=== PATIENT | male | born 1950 | race Caucasian/White ===

== ENCOUNTER 2019-03-12 18:44 | Inpatient (IN) ==
--- NOTE | 2019-03-12 19:52 | PROVIDER DOCUMENTATION ---
HPI-Respiratory General - General Chief Complaint: Shortness of Breath Stated Complaint: SOB, COPD Time Seen by Provider: 03/12/19 19:40 Source: patient, family Allergies/Adverse Reactions: Patient Allergies Allergy/AdvReac Type Severity Reaction Status Date / Time No Known Allergies Allergy Verified 03/12/19 21:08 Home Medications: Home Medication List Medication Instructions Recorded Confirmed Last Taken Type Aspirin EC 81 mg PO DAILY 07/05/14 03/12/19 03/12/19 History Carvedilol [Coreg] 12.5 mg PO BID 07/05/14 03/12/19 03/12/19 History Diazepam [Valium] 5 mg PO TID 07/05/14 03/12/19 03/12/19 History Fentanyl 75 Microgm/Hr Patch 1 each TD Q72H 07/05/14 03/12/19 03/10/19 History [Duragesic 75 Microgm/Hr Patch] Furosemide 20 mg PO BID 07/05/14 03/12/19 03/12/19 History Isosorbide Mononitrate E.r. [Imdur] 60 mg PO BID 07/05/14 03/12/19 03/12/19 History Levothyroxine Sodium 150 mcg PO DAILY 07/05/14 03/12/19 03/12/19 History Nateglinide [Starlix] 120 mg PO TID 07/05/14 03/12/19 03/12/19 History ROSUVAstatin [Crestor] 20 mg PO QHS 07/05/14 03/12/19 03/11/19 History Ranolazine [Ranexa] 1,000 mg PO BID 07/05/14 03/12/19 03/12/19 History Fexofenadine [Maya] 1 tab PO DAILY 10/08/15 03/12/19 03/12/19 History Mometasone Nasal [place] [Nasonex 2 sprays BOGDAN DAILY 10/08/15 03/12/19 03/12/19 History Nasal [place]] Prasugrel HCl [Effient] 10 mg PO DAILY 10/08/15 03/12/19 03/12/19 History Albuterol Sulfate [Proair Hfa] 2 puff INH Q6HR PRN 03/12/19 03/12/19 03/12/19 History Butorphanol Tartrate 1 spray INTRANASAL PRN PRN 03/12/19 03/12/19 Unknown History Nitroglycerin 1 spray SUBLINGUAL PRN PRN 03/12/19 03/12/19 Unknown History Olmesartan Medoxomil 2 tab PO DAILY 03/12/19 03/12/19 03/11/19 History Potassium Chloride 1 cap PO DAILY 03/12/19 03/12/19 03/12/19 History Testosterone [Androgel] 2 pump TOP QAM 03/12/19 03/12/19 03/12/19 History - History of Present Illness-Resp Nature of Presenting Problem: hx of copd and sleep apnea has had some cough may be a bit confused per got sick today no uri sx Quality of Pain: reports: aching Severity in ED: reports: mild Onset/Duration: reports: this afternoon Timing: reports: still present Context: denies: multiple patients with similar complaints, recent URI Exposure: reports: unknown cause Cough Quality/Degree: reports: dry cough Episode Frequency: occasional episodes Modifying Factors: improves with: coughing Associated Symptoms: reports: cough, short of breath. denies: nasal congestion, nasal drainage Similar Symptoms Previously?: Yes Recently seen or treated by another doctor?: No Review of Systems - Adult - REVIEW OF SYSTEMS - ADULT Constitutional: reports: no symptoms reported Eyes: reports: no symptoms reported Ears, Nose, Mouth & Throat: reports: no symptoms reported Cardiovascular: reports: no symptoms reported Respiratory: reports: cough, shortness of breath Gastrointestinal: reports: no symptoms reported Genitourinary: reports: no symptoms reported Musculoskeletal: reports: no symptoms reported Integumentary: reports: no symptoms reported Neurological: reports: no symptoms reported Psychiatric: reports: no symptoms reported Endocrine: reports: no symptoms reported Hematologic/Lymphatic: reports: no symptoms reported Allergic/Immunologic: reports: no symptoms reported Past History - Adult - PAST MEDICAL HISTORY-ADULT Review of Records: reports: Nursing Assessment Review, Medications Reviewed, Social history reviewed & non-contributory. Major Childhood Illnesses: reports: denies history Cardiovascular: reports: CAD, HTN, [place], pacemaker Respiratory: reports: sleep apnea Gastrointestinal: reports: GERD, hemorrhoids Musculoskeletal: reports: arthritis Endocrine/Immune: reports: Diabetes, thyroid disorder - PRIOR SURGERIES/PROCEDURES Surgical/Procedure History: reports: appendectomy, colonoscopy, CABG, cholecystectomy, cardiac stent, pacemaker, esophageal dilation, orthopedic (extremity) - IMMUNIZATION STATUS Childhood Immunizations: See Nurse Assessment Flu Vaccine: See Nurse Assessment Physical Exam-General - PHYSICAL EXAM-ADULT Initial Vital Signs Reviewed: Yes - CONSTITUTIONAL General Appearance: alert, no apparent distress - EYES Eyes: PERRL/EOMI, pink conjunctivae - HEAD, EARS, NOSE, MOUTH & THROAT HENMT: normocephalic/atraumatic, moist mucous membranes, normal ENT inspection, TMs normal, pharynx normal - NECK Neck: full range of motion, supple - RESPIRATORY Respiratory: lungs clear, no respiratory distress - CARDIOVASCULAR Cardiovascular: normal peripheral pulses, regular rate, rhythm - GASTROINTESTINAL (ABDOMEN) Abdominal Exam: soft - LYMPHATIC Lymphatic: no adenopathy - MUSCULOSKELETAL Back Exam: normal inspection, no CVA tenderness Extremity: normal range of motion, swelling Peripheral Pulses: dorsalis-pedis (R): 1+, dorsalis-pedis (L): 1+ - SKIN Integumentary: normal color, normal turgor - NEUROLOGIC Neurologic: community development technician II-XII nml as tested - PSYCHIATRIC Psych/Mental Status: oriented x 3 Progress - PLAN OF CARE/RESULTS Progress/Plan/Lab Results: Vital Signs - 8 hr 03/12/19 18:56 03/12/19 20:02 03/12/19 20:39 Temperature 99.1 F Pulse Rate 99 H 88 83 Respiratory Rate 24 22 20 Blood Pressure 125/68 104/73 117/65 O2 Sat by Pulse Oximetry 90 L 95 95 03/12/19 22:11 Temperature Pulse Rate 78 Respiratory Rate 17 Blood Pressure 124/56 O2 Sat by Pulse Oximetry 98 Laboratory Results - last 24 hr 03/12/19 03/12/19 03/12/19 19:45 19:45 20:19 WBC 12.51 H RBC 3.08 L Hgb 9.6 L Hct 30.9 L MCV 100.3 H MCH 31.2 H MCHC 31.1 L RDW Std Deviation 13.3 Plt Count 219 MPV 9.5 Immature Gran % (Auto) 0.2 Neut % (Auto) 87.8 H Lymph % (Auto) 6.2 L [place] % (Auto) 5.4 Eos % (Auto) 0.3 Baso % (Auto) 0.1 Immature Gran # (Auto) 0.02 Neut # (Auto) 11.00 H Lymph # (Auto) 0.77 L [place] # (Auto) 0.67 H Eos # (Auto) 0.04 Baso # (Auto) 0.01 Sodium 143 Potassium 5.2 H Chloride 103 Carbon Dioxide 30 Anion Gap 9 BUN 32 H Creatinine 2.0 H Estimated GFR/1.73 m2 33 BUN/Creatinine Ratio 16 Glucose 369 H Calculated Osmolality 307 Calcium 8.8 Total Bilirubin 0.50 AST 10 ALT 9 L Alkaline Phosphatase 57 Creatine Kinase 61 Total Protein 7.1 Albumin 4.0 Globulin 3.0 Albumin/Globulin Ratio 1.0 Plasma Lactate Urine Source Urine Color Urine Clarity Urine pH Ur Specific [place] Urine Protein Urine Ketones Urine Blood Urine Nitrite Urine Bilirubin Urine Urobilinogen Urine Microscopic RBC Urine WBC Urine Microscopic WBC Ur Epithelial Cells Urine Crystals Urine Bacteria Urine Casts Urine Yeast Urine Glucose Influenza A (Rapid) NEGATIVE Influenza B (Rapid) NEGATIVE 03/12/19 03/12/19 20:31 20:46 WBC RBC Hgb Hct MCV MCH MCHC RDW Std Deviation Plt Count MPV Immature Gran % (Auto) Neut % (Auto) Lymph % (Auto) [place] % (Auto) Eos % (Auto) Baso % (Auto) Immature Gran # (Auto) Neut # (Auto) Lymph # (Auto) [place] # (Auto) Eos # (Auto) Baso # (Auto) Sodium Potassium Chloride Carbon Dioxide Anion Gap BUN Creatinine Estimated GFR/1.73 m2 BUN/Creatinine Ratio Glucose Calculated Osmolality Calcium Total Bilirubin AST ALT Alkaline Phosphatase Creatine Kinase Total Protein Albumin Globulin Albumin/Globulin Ratio Plasma Lactate 1.3 Urine Source CLEAN CATCH Urine Color YELLOW Urine Clarity CLEAR Urine pH 5.0 Ur Specific [place] 1.010 Urine Protein TRACE A Urine Ketones NEGATIVE Urine Blood NEGATIVE Urine Nitrite NEGATIVE Urine Bilirubin NEGATIVE Urine Urobilinogen NORMAL Urine Microscopic RBC Not Reportable Urine WBC NEGATIVE Urine Microscopic WBC <10 Ur Epithelial Cells <10 Urine Crystals NONE SEEN Urine Bacteria 1+ Urine Casts GRANULAR PRESENT Urine Yeast NONE SEEN Urine Glucose 3+(500 mg/dL) A Influenza A (Rapid) Influenza B (Rapid) Orders Category Date Time Status CHEST-2 VIEWS [RAD] Stat Exams 03/12/19 19:[address] THORAX W/O CONTRAST [CT] Stat Exams 03/12/19 22:37 Taken BLOOD CULTURE [BLDCUL] Stat Lab 03/12/19 20:31 Results CBC WITH ELECTRONIC DIFF [HEME] Stat Lab 03/12/19 19:45 Completed CK PROFILE [SP CHEM] Stat Lab 03/12/19 19:45 Completed COMPREHENSIVE METABOLIC PANEL [CHEM] Stat Lab 03/12/19 19:45 Completed Flu [INFLUENZA SCREEN PL] Stat Lab 03/12/19 20:19 Completed LACTATE, PLASMA [CHEM] Stat Lab 03/12/19 20:[address] W/POSS RFLX CULT [URINALYSIS] Stat Lab 03/12/19 20:46 Completed 0.9% Sodium Chloride Inj [Ns] 1,000 ml Med 03/12/19 23:43 Active IV 100 mls/hr EKG [EKG] Routine Ther 03/12/19 19:46 Draft Transfer/Admit Order [TRANSFER] Routine Transfer 03/12/19 23:39 Ordered Result Diagrams: 03/12/19 19:45 03/12/19 19:45 - XRAY 1 XRAY Study: Chest Impression: Normal - CT/MRI 1 CT Study: Thorax Impression: Abnormal (possible pneumonia) Departure - Departure Date of Disposition Decision: 03/12/19 Time of Disposition Decision: 23:47 DIAGNOSIS: COPD (chronic obstructive pulmonary disease) with chronic bronchitis Diabetes Qualifiers: Diabetes mellitus type: type 2 Diabetes mellitus fci insulin use: without fci use Diabetes mellitus complication status: with hyperglycemia Qualified Code(s): E11.65 - Type 2 diabetes mellitus with hyperglycemia Pneumonia Qualifiers: Pneumonia type: due to unspecified organism Laterality: bilateral Lung location: unspecified part of lung Qualified Code(s): J18.9 - Pneumonia, unsp ecified organism Disposition: ADMITTED INPATIENT 09 Certified Medical Emergency: Emergent Condition: Stable Additional Freetext Instructions: ED Follow Up Instructions: You have been treated by a care provider in the Emergency Department. These instructions are being provided to you so you can have an understanding of how to care for yourself upon discharge. Upon discharge from the Emergency Department, you are responsible for making arrangements for follow-up care by a physician of your choice. Take all prescribed medications as directed. Return to the Emergency Department immediately for any new or worsening symptoms. You may call the Physician Referral phone number at [phone] to obtain a list of Physicians who are taking new patients. Referrals and Follow-Ups: Amol Ballesteros MD [Primary Care Provider] - Work Excuses: Return to School/Parent Work - Critical Care Note This patient required my direct & personal management of CC.: No Attestation - Physician/ YOLA Attestation Patient care was provided by Advanced Practice Provider:: No The physician spent face to face time with patient:: Yes Advanced Practice Provider documentation review:: Supervising physician onsite and consulted in the evaluation and care of this patient. The physician did have a face to face encounter with the patient.
[2019-03-12 20:00] LABS: BASO# 0.01 X1000 (0.0-0.2); BASO% 0.1 % (0.0-0.8); EOS# 0.04 X1000 (0.0-0.7); EOS% 0.3 % (0.0-10.0); HEMATOCRIT 30.9 % (42.0-52.0); HEMOGLOBIN 9.6 g/dL (14.0-18.0); IMM GRAN# 0.02 X1000 (0.0-0.04); IMM GRAN% 0.2 % (0.0-0.5); LYMPH# 0.77 X1000 (1.2-3.4); LYMPH% 6.2 % (20.5-51.1); MCH 31.2 PG (27-31); MCHC 31.1 g/dL (33-37); MCV 100.3 FL (81-99); MONO# 0.67 X1000 (0.11-0.59); MONO% 5.4 % (1.7-9.3); MPV 9.5 FL (7.4-10.4); NEUT% 87.8 % (42.2-75.2); PLT 219 X1000 (130-400); RBC 3.08 XMIL (4.7-6.1); RDW 13.3 % (11.5-14.5); WBC 12.51 X1000 (4.8-10.8)
[2019-03-12 20:19] LABS: CALCIUM 8.8 mg/dL (8.8-10.2); POTASSIUM 5.2 mmol/L (3.5-5.1); TOTAL BILIRUBIN 0.5 mg/dL (0.20-1.00); TOTAL PROTEIN 7.1 g/dL (6.3-8.3)
--- NOTE | 2019-03-12 20:39 | Diag Imaging Result Doc PS360 ---
EXAM: CHEST-2 VIEWS HISTORY: cough TECHNIQUE: Chest two views COMPARISON: 10/25/2015 FINDINGS: Poor inspiratory effort. The heart is not enlarged. There are sternal wires. Left pacemaker. The vessels are not distended. There are no infiltrates. No pleural effusions. IMPRESSION: No pneumonia. Electronically signed by Yan Eaton 03/12/2019 8:37 PM
[2019-03-12 20:41] LABS: INFLUENZA A NEGATIVE (NEGATIVE); INFLUENZA B NEGATIVE (NEGATIVE)
[2019-03-12 20:56] LABS: BILIRUBIN URINE NEGATIVE (NEGATIVE); BLOOD URINE NEGATIVE (NEGATIVE); KETONE URINE NEGATIVE (NEGATIVE); LEUKOCYTES URINE NEGATIVE (NEGATIVE); NITRITE URINE NEGATIVE (NEGATIVE); PROTEIN URINE TRACE mg/dL (NEGATIVE); UROBILINOGEN URINE NORMAL
[2019-03-12 20:57] LABS: CLARITY CLEAR (CLEAR); COLOR YELLOW
[2019-03-12 21:08] LABS: URINE BACTERIA 1+ /HFP; URINE CAST GRANULAR PRESENT /LPF; URINE CRYSTAL NONE SEEN /HPF; URINE EPITHELIAL CELLS <10 /HPF (<10); URINE WBC <10 /HPF (<10); URINE YEAST NONE SEEN /HPF
[2019-03-12 21:09] LABS: URINE SOURCE CLEAN CATCH
--- NOTE | 2019-03-12 21:52 | EKG Report ---
Test Performed on : 03/12/2019 8:16:21 PM Test Reason : emboli Blood Pressure : / mmHG Vent. Rate : 083 BPM Atrial Rate : 083 BPM P-R Int : 188 ms QRS Dur : 094 ms QT Int : 384 ms P-R-T Axes : 013 050 066 degrees QTc Int : 451 ms Sinus rhythm. with premature atrial complexes. with aberrant conduction. Otherwise normal ECG When compared with ECG of 07-OCT-2015 21:51, aberrant conduction. is now present Nonspecific T wave abnormality no longer evident in Inferior leads Unconfirmed Result
[2019-03-12] MEDS ORDERED: NS 1,000 ML IV ONE (23:43)
--- NOTE | 2019-03-12 23:45 | ED EKG INTERP ---
This chart was entered by Ailin Buchanan Scribe, acting as scribe for Amol Ballesteros MD. EKG Interpretation - EKG Time of EKG reading by physician:: 20:16 EKG Read and Signed by:: Amol Ballesteros EKG Interpretation (*Must complete 3 of following elements*): Normal Rate: 83 Rhythm: sinus rhythm with PAC with aberrant complexes [place]: normal QRS: other (PACs) NH Interval: normal ST Wave: normal Attestation - Physician/ YOLA Attestation Patient care was provided by Advanced Practice Provider:: No The physician spent face to face time with patient:: Yes Advanced Practice Provider documentation review:: Supervising physician onsite and consulted in the evaluation and care of this patient. The physician did have a face to face encounter with the patient. This chart was documented by the indicated scribe, (Ailin Buchanan, Kelsey) and accurately reflects the services I performed and decisions made by me, Amol Ballesteros MD, as attested by the provider's signature.
[2019-03-13] MEDS ORDERED: TYLENOL PO PRN (00:50)
[2019-03-13] MEDS ORDERED: LEVAQUIN 500 MG in NS 100 ML IV ONE (00:50)
[2019-03-13] MEDS: LEVAQUIN 500 MG/D5W 500 MG/100 ML IVPB IV SCH (01:58)
[2019-03-13] MEDS: DUONEB (A & A) INH SCH ×6 (04:20→22:55)
--- NOTE | 2019-03-13 07:34 | Diag Imaging Result Doc PS360 ---
EXAM: CT THORAX W/O CONTRAST - 03/12/2019 HISTORY: cough TECHNIQUE: CT thorax without contrast. COMPARISON: 10/07/2015 FINDINGS: There is chronic elevation of the right hemidiaphragm with associated mild compressive atelectasis at the right base. There is mild infiltrate with nodularity at the right middle lobe. There is mild infiltrate nodularity at the left lingula. There is subsegmental atelectasis at the left lower lobe. There is a small nodular density at anterior lateral right upper lobe similar to prior. There is no pleural effusion or pneumothorax identified. There are nonspecific small mediastinal lymph nodes which are mildly less prominent compared to prior. There are atherosclerotic calcifications noted. There is apparent chronic thickening of the daniels of the esophagus similar to prior. There is retained fecal debris in the visualized colon in the upper abdomen suggesting constipation. IMPRESSION: Mild infiltrates with nodularity at right middle lobe and left lingula. These may relate to pneumonia or atypical pneumonitis. The on-call radiologist provided preliminary results at 11:22 PM on 03/12/2019. This exam was performed using automated exposure control, adjustment of mA or kV according to patient size, and/or use of iterative reconstruction technique. Electronically signed by Adam Anaya 03/13/2019 7:32 AM
[2019-03-13] MEDS ORDERED: VENTOLIN HFA INH PRN (09:29)
[2019-03-13] MEDS ORDERED: PATIENT'S OWN MED NAS PRN (09:29)
[2019-03-13] MEDS ORDERED: DURAGESIC 75 MICROGM/HR PATCH TD SCH (09:30)
[2019-03-13] MEDS: RANEXA PO SCH ×2 (09:54→21:27)
[2019-03-13] MEDS: STARLIX PO SCH ×3 (09:54→16:57)
[2019-03-13] MEDS: COREG PO SCH ×2 (09:55→21:28)
[2019-03-13] MEDS: LASIX PO SCH ×2 (09:55→21:30)
[2019-03-13] MEDS: FLONASE NAS SCH (09:55)
[2019-03-13] MEDS: IMDUR PO SCH ×2 (09:55→21:31)
[2019-03-13] MEDS: KLOR-CON PO SCH (09:55)
[2019-03-13] MEDS: ASPIRIN EC PO SCH (09:55)
[2019-03-13] MEDS: ALLEGRA PO SCH (09:55)
[2019-03-13] MEDS: EFFIENT PO SCH (09:55)
[2019-03-13] MEDS: BENICAR PO SCH (10:03)
[2019-03-13] MEDS: PATIENT'S OWN MED TOP SCH (10:10)
[2019-03-13] MEDS: VALIUM PO SCH ×2 (12:00→16:57)
[2019-03-13 14:16] LABS: ALBUMIN 3.4 g/dL (3.5-5.0); CALCIUM 8.3 mg/dL (8.8-10.2); CREATININE 1.9 mg/dL (0.7-1.2); POTASSIUM 4.7 mmol/L (3.5-5.1); TOTAL BILIRUBIN 0.7 mg/dL (0.20-1.00); TOTAL PROTEIN 6.5 g/dL (6.3-8.3)
[2019-03-13 14:43] LABS: HEMATOCRIT 28.5 % (42.0-52.0); HEMOGLOBIN 8.9 g/dL (14.0-18.0); MCHC 31.2 g/dL (33-37); MCV 102.5 FL (81-99); RBC 2.78 XMIL (4.7-6.1); WBC 13.87 X1000 (4.8-10.8)
[2019-03-13 14:44] LABS: BASO# 0.02 X1000 (0.0-0.2); BASO% 0.1 % (0.0-0.8); EOS# 0.27 X1000 (0.0-0.7); EOS% 1.9 % (0.0-10.0); IMM GRAN# 0.04 X1000 (0.0-0.04); IMM GRAN% 0.3 % (0.0-0.5); LYMPH# 1.84 X1000 (1.2-3.4); LYMPH% 13.3 % (20.5-51.1); MONO# 0.65 X1000 (0.11-0.59); MONO% 4.7 % (1.7-9.3); MPV 9.8 FL (7.4-10.4); NEUT# 11.05 X1000 (1.4-6.5); NEUT% 79.7 % (42.2-75.2); PLT 183 X1000 (130-400); RDW 13.3 % (11.5-14.5)
[2019-03-13 21:25] LABS: BILIRUBIN URINE NEGATIVE (NEGATIVE); BLOOD URINE NEGATIVE (NEGATIVE); CLARITY CLEAR (CLEAR); COLOR YELLOW; GLUCOSE URINE NEGATIVE (NEGATIVE); KETONE URINE NEGATIVE (NEGATIVE); LEUKOCYTES URINE NEGATIVE (NEGATIVE); NITRITE URINE NEGATIVE (NEGATIVE); PROTEIN URINE TRACE mg/dL (NEGATIVE); SP GRAVITY URINE 1.015; UROBILINOGEN URINE NORMAL
[2019-03-13] MEDS: CRESTOR PO SCH (21:30)
[2019-03-13 21:32] LABS: URINE BACTERIA NEGATIVE /HFP; URINE CAST GRANULAR PRESENT /LPF; URINE EPITHELIAL CELLS <10 /HPF (<10); URINE RBC <10 /HPF (<10); URINE SOURCE CLEAN CATCH; URINE WBC <10 /HPF (<10)
[2019-03-14] MEDS: DUONEB (A & A) INH SCH ×6 (03:05→23:57)
[2019-03-14] MEDS: SYNTHROID PO SCH ×2 (06:05→06:06)
[2019-03-14] MEDS: STARLIX PO SCH ×3 (08:49→17:14)
[2019-03-14] MEDS: ALLEGRA PO SCH (08:50)
[2019-03-14] MEDS: KLOR-CON PO SCH (08:51)
[2019-03-14] MEDS: VALIUM PO SCH ×3 (08:51→17:14)
[2019-03-14] MEDS: RANEXA PO SCH ×2 (08:51→21:29)
[2019-03-14] MEDS: COREG PO SCH ×2 (08:52→21:29)
[2019-03-14] MEDS: EFFIENT PO SCH (08:54)
[2019-03-14] MEDS: LASIX PO SCH ×2 (08:55→21:29)
[2019-03-14] MEDS: ASPIRIN EC PO SCH (08:55)
[2019-03-14] MEDS: IMDUR PO SCH ×2 (08:55→21:29)
[2019-03-14] MEDS: PATIENT'S OWN MED TOP SCH (08:56)
[2019-03-14] MEDS: FLONASE NAS SCH (08:56)
[2019-03-14] MEDS: CRESTOR PO SCH (21:29)
[2019-03-14] MEDS: BENICAR PO SCH (21:32)
[2019-03-15] MEDS: LEVAQUIN 500 MG/D5W 500 MG/100 ML IVPB IV SCH (01:23)
[2019-03-15] MEDS: DUONEB (A & A) INH SCH ×3 (03:41→11:23)
[2019-03-15] MEDS: SYNTHROID PO SCH ×2 (06:17→06:18)
[2019-03-15] MEDS: ALLEGRA PO SCH (08:07)
[2019-03-15] MEDS: COREG PO SCH (08:07)
[2019-03-15] MEDS: LASIX PO SCH (08:08)
[2019-03-15] MEDS: RANEXA PO SCH (08:08)
[2019-03-15] MEDS: BENICAR PO SCH ×2 (08:08→08:16)
[2019-03-15] MEDS: EFFIENT PO SCH (08:08)
[2019-03-15] MEDS: VALIUM PO SCH ×2 (08:08→12:13)
[2019-03-15] MEDS: KLOR-CON PO SCH (08:09)
[2019-03-15] MEDS: FLONASE NAS SCH (08:09)
[2019-03-15] MEDS: IMDUR PO SCH (08:09)
[2019-03-15] MEDS: ASPIRIN EC PO SCH (08:09)
[2019-03-15] MEDS: STARLIX PO SCH ×2 (08:09→12:13)
[2019-03-15] MEDS: PATIENT'S OWN MED TOP SCH (08:16)
[2019-03-15 11:36] LABS: BASO# 0.02 X1000 (0.0-0.2); BASO% 0.3 % (0.0-0.8); EOS# 0.46 X1000 (0.0-0.7); EOS% 5.9 % (0.0-10.0); HEMATOCRIT 29.5 % (42.0-52.0); HEMOGLOBIN 9.1 g/dL (14.0-18.0); IMM GRAN# 0.01 X1000 (0.0-0.04); IMM GRAN% 0.1 % (0.0-0.5); LYMPH# 1.79 X1000 (1.2-3.4); LYMPH% 22.8 % (20.5-51.1); MCHC 30.8 g/dL (33-37); MCV 100.3 FL (81-99); MONO# 0.63 X1000 (0.11-0.59); MPV 9.8 FL (7.4-10.4); NEUT# 4.95 X1000 (1.4-6.5); NEUT% 62.9 % (42.2-75.2); PLT 210 X1000 (130-400); RBC 2.94 XMIL (4.7-6.1); RDW 12.8 % (11.5-14.5); WBC 7.86 X1000 (4.8-10.8)
--- NOTE | 2019-03-15 11:41 | Diag Imaging Result Doc PS360 ---
EXAM: CHEST-2 VIEWS 03/15/2019 HISTORY: cough TECHNIQUE: PA and lateral chest COMMENT: The inspiration is less optimal than on 03/12/2019. There is some bibasilar atelectasis which was not previously present. Otherwise are has been no significant change. IMPRESSION: Minimal basilar atelectasis. Electronically signed by Bryce Cardoso 03/15/2019 11:39 AM
[2019-03-15 11:49] LABS: ALBUMIN 3.7 g/dL (3.5-5.0); CALCIUM 8.5 mg/dL (8.8-10.2); CREATININE 1.9 mg/dL (0.7-1.2); POTASSIUM 4.3 mmol/L (3.5-5.1); TOTAL BILIRUBIN 0.6 mg/dL (0.20-1.00)
[2019-03-15 11:52] VITALS: BP 110/51
--- NOTE | 2019-03-27 08:11 | PROGRESS NOTE ---
DATE: 03/13/2019 The patient was admitted with a suspected pneumonia and hypoxia with altered mental status. On 03/13/2019, his pulse was 70, respiratory rate was 20, blood pressure 95/39, O2 saturation was 96% on 2 L. His white count was 13,870, hematocrit was 28.5, platelet count was 210. BUN [address], [address] of the chest showed a patchy nodular nonspecific infiltrate. cc: Amol Ballesteros MD
--- NOTE | 2019-03-27 08:24 | HISTORY AND PHYSICAL ---
Patient has a history of COPD, sleep apnea, thyroid disease, ischemic heart disease, chronic pain disorder, presented with a history of COPD, sleep apnea and some cough and according to his , a bit confused, just got sick the day of presentation. No real URI symptoms. He has been aching mildly this afternoon. He has had some issues of this shortness of breath persisting up into the afternoon. He has a dry cough but he has had similar spells like this before and he would be affected with pneumonia. In the ER, he had a temp of 99.1 degrees, pulse rate of 99, respiratory rate 24, blood pressure 125/68, O2 sat was 90. He had an elevated white count, 12,510. Hematocrit was low at 30.9. His sodium was 143, potassium 5.2, chloride 103, CO2 30, BUN 32, creatinine 2. This is kind of chronic, GFR, stage 3 renal failure at 33. Glucose was 369. LFTs and liver function tests were normal. Flu swabs were negative. Plasma lactate was 1.3. Urine 10.10. Chest x- ray was read as normal. CT of the thorax was abnormal with a possible pneumonia. He was admitted with generalized weakness and COPD exacerbation. REVIEW OF SYSTEMS: GENERAL: He denies any symptoms of general malaise although his says he just seems to be somewhat blunted and a little bit less responsive. EYES: No irritation, drainage. EARS, NOSE AND THROAT: No sore throat, pharyngitis, otitis, sinusitis. CARDIOVASCULAR: He denies any chest pain, shortness of breath, PND, orthopnea. RESPIRATORY: He has cough, shortness of breath. GASTROINTESTINAL: No nausea, vomiting, diarrhea, constipation, melena, hematochezia. GENITOURINARY: No dysuria, hematuria, polyuria, pyuria. MUSCULOSKELETAL: He has mild generalized aches in his chest and his arms. SKIN: No skin lesions or rashes. NEUROLOGICAL: He had no focal neurological deficits. No seizures. No headaches. PSYCHIATRY: Negative. ENDOCRINE: He has diabetes and his replacement therapy has been good. HEMATOLOGICAL: No clotting or bleeding disorder. ALLERGIES/IMMUNOLOGIC: No asthma, hayfever. PAST MEDICAL HISTORY: He has coronary artery disease, hypertension, [place], he had a pacemaker, history of sleep apnea, GERD, hemorrhoids, arthritis, diabetes and a thyroid disorder. He is status post appendectomy, CABG, cholecystectomy, cardiac stent, pacemaker, esophageal dilatation, several orthopedic surgeries and a colonoscopy. PHYSICAL EXAMINATION: HEENT: At the time of admission, his head was normocephalic. Eyes were PERRL. EOMs intact. SC clear. Fundi benign. Nares patent. Oropharynx negative. NECK: Supple with bounding carotids without thyromegaly or lymphadenopathy. CHEST: Clear. No consolidative breath sounds appreciated. CARDIOVASCULAR: Normal peripheral pulses. Regular rhythm and rate. GASTROINTESTINAL: Abdomen is soft, obese. No hepatosplenomegaly. No CVA tenderness. EXTREMITIES: No neuropathy. MUSCULOSKELETAL: Normal inspection. No CVA tenderness. Normal range of motion. No swelling. Peripheral pulses were 1+ and 1+. SKIN: Clear. NEUROLOGICAL: Tests clear. He was oriented x3. So he was admitted with fever, cold-like symptoms, confusion, diabetes, ischemic heart disease, chronic renal disease. So he was put in the hospital and he was placed on levothyroxine, Crestor, diazepam, Ranexa, Benicar, Starlix, Effient, aspirin, furosemide, isosorbide, Fentanyl, carvedilol 12.5, Maya 180 and levofloxacin every 48 hours. cc: Amol Ballesteros MD
--- NOTE | 2019-03-27 08:25 | PROGRESS NOTE ---
DATE: 03/14/2019 His pulse was 66, respiratory rate was 14, BP 97/53, O2 sat was 96%. His sodium was 140, potassium 4.7, chloride 105, CO2 26, BUN 28, creatinine 1.9. Chest was clear, bilateral breath sounds. The patient was more at himself, not as symptomatic on Levaquin and seems to be doing better. cc: Amol Ballesteros MD
--- NOTE | 2019-03-27 20:13 | DISCHARGE SUMMARY ---
ADMISSION DATE: 03/13/2019 DISCHARGE DATE: 03/15/2019 HISTORY OF PRESENT ILLNESS: He presented to the emergency room with what he thought was the early stages of a cough. His , who oversees his health, felt like this was what happens when he gets pneumonia in the past, he becomes short of breath and hypoxic, so she brought him in. The patient was, in fact, a little disengaged and not real communicative. HOSPITAL COURSE: He did have an O2 saturation of 90% and he was complaining of shortness of breath, so we placed him in the hospital and cultured him. Blood cultures were ultimately negative. X-rayed him, his initial chest x-ray showed poor effort, heart not enlarged, mediastinal wires, left pacemaker, vessels are not distended, no infiltrates or effusions. This was followed up with a CT since we did not really see anything on his x-rays, which has been the case in the past, and his thinks she would be appreciative if we did a CT, which showed an elevation of the right hemidiaphragm associated with mild compressive atelectasis of the right base, there was a mild infiltrate with nodularity in the right middle lobe, and mild infiltrate with nodularity in the left lingula, there was subsegmental atelectasis at the left lower lobe and there was a small nodule present at the anterolateral right upper lobe similar to prior. There was no pleural effusions or pneumothorax. There were nonspecific mediastinal lymph nodes, which are less prominent than prior; atherosclerotic calcifications noted; and there is chronic thickening in the daniels of the esophagus similar to prior. He had some constipation. His laboratory with IV therapy - his white count dropped from 12,510 to 13,870 down to 7,860. Hematocrit was 30.9 to as low as 28.5. Platelets in the low 200s. Chemistries showed some chronic renal insufficiency with GFR between 33 and 35. Electrolytes appeared to be, for the most part, normal. Blood sugars were elevated. Total protein, albumin, and calcium were intact. Alkaline phosphatase was likewise intact. Lactate was 1.3. Urine was pretty unremarkable and cultures were negative. Flu was negative. He was started on Levaquin and slowly but surely he improved, where he was more watching TV and acting like he normally does. We are going to continue the Levaquin as an outpatient even though his cultures were negative and then follow up his chest x-ray. cc: Amol Ballesteros MD
== END 2019-03-15 15:04 | disposition home or self-care (01) | DRG 194 ==
LOC: P.ED 18:44 → P.MEDSURG 03-13 00:30
PROVIDERS: ADMIT Internal Medicine; ATTEND Internal Medicine

== ENCOUNTER 2019-06-07 11:04 | Inpatient (IN) ==
[2019-06-07] MEDS ORDERED: NEOSPORIN OINTMENT PACKET TOP ONE (11:43)
[2019-06-07 11:46] LABS: BE 3.7 mmoll (-3.0-3.0); BLOOD TYPE ARTERIAL; HCO3-(ACT) 27.5 mmoll (20.0-26.0); METHB 0.6 % (0.0-1.5); O2(CT) 12.5 mL/dL (15.0-23.0); PCO2(98.6) 47 mmHg (35-45); SAMPLE BLOOD; SAO2 85.6 % (95.0-100.0); THB 10.6 g/dL (11.5-17.4)
[2019-06-07 11:50] LABS: PO2(98.6) 45 mmHg (60-100)
[2019-06-07 11:51] LABS: ALLEN TEST YES; MODALITY ROOM AIR
[2019-06-07 11:55] LABS: BASO# 0.02 X1000 (0.0-0.2); BASO% 0.3 % (0.0-0.8); EOS% 2.5 % (0.0-10.0); HEMATOCRIT 33.8 % (42.0-52.0); HEMOGLOBIN 10.3 g/dL (14.0-18.0); IMM GRAN# 0.02 X1000 (0.0-0.04); IMM GRAN% 0.3 % (0.0-0.5); LYMPH# 0.74 X1000 (1.2-3.4); LYMPH% 9.3 % (20.5-51.1); MCH 30.2 PG (27-31); MCHC 30.5 g/dL (33-37); MCV 99.1 FL (81-99); MONO# 0.48 X1000 (0.11-0.59); MPV 9.8 FL (7.4-10.4); NEUT# 6.49 X1000 (1.4-6.5); NEUT% 81.6 % (42.2-75.2); PLT 204 X1000 (130-400); RBC 3.41 XMIL (4.7-6.1); RDW 13.2 % (11.5-14.5); WBC 7.95 X1000 (4.8-10.8)
[2019-06-07 12:12] LABS: PROTIME 13.7 Seconds (11.0-16.0)
[2019-06-07 12:13] LABS: PTT 32.4 Seconds (22.3-41.8)
[2019-06-07 12:15] LABS: ALBUMIN 4.6 g/dL (3.5-5.0); CALCIUM 9.4 mg/dL (8.8-10.2); CREATININE 1.7 mg/dL (0.7-1.2); POTASSIUM 4.6 mmol/L (3.5-5.1); TOTAL BILIRUBIN 0.7 mg/dL (0.20-1.00); TOTAL PROTEIN 7.9 g/dL (6.3-8.3)
--- NOTE | 2019-06-07 12:22 | Diag Imaging Result Doc PS360 ---
EXAM: CHEST-2 VIEWS 06/07/2019 HISTORY: sob copd TECHNIQUE: PA and lateral chest COMMENT: The inspiration is suboptimal. There is some questionable atelectasis over the lung bases. The appearance the chest has not changed significantly since 03/15/2019. IMPRESSION: Stable chest. Electronically signed by Bryce Cardoso 06/07/2019 12:20 PM
--- NOTE | 2019-06-07 12:43 | Diag Imaging Result Doc PS360 ---
EXAM: CT THORAX W/O CONTRAST 06/07/2019 HISTORY: R/O PNEUMONIA TECHNIQUE: This exam was performed using automated exposure control, adjustment of mA or kV according to patient size, and/or use of iterative reconstruction technique. COMMENT: The current study is compared with 03/12/2019. There are opacities present in the posterior costophrenic sulci bilaterally. The ill-defined opacities in the lingula and right middle lobe which were present on 03/12/2019 are no longer present. The basilar opacities have not changed and are likely related to fibrosis. There are no abnormal fluid collections. There are extensive coronary calcifications. There has been previous sternotomy. There are some prominent mediastinal nodes which have not changed significantly in appearance since the previous study. The regional skeleton is stable in appearance. There is a fairly large amount of stool in the visualized portion of the colon. IMPRESSION: Fibrotic changes in the lower lobes. No evidence of acute pulmonary disease. Constipation unchanged since 03/12/2019. Other nonacute findings as described above. Electronically signed by Bryce Cardoso 06/07/2019 12:41 PM
[2019-06-07] MEDS ORDERED: DUONEB (A & A) INH ONE (13:20)
[2019-06-07] MEDS ORDERED: VANCOMYCIN IV PER PHARMACY MISC SCH (13:30)
[2019-06-07] MEDS ORDERED: TYLENOL PO ONE (13:32)
[2019-06-07] MEDS ORDERED: NS 1,000 ML IV ONE ×2 (13:33→14:01)
[2019-06-07 13:56] LABS: INFLUENZA A NEGATIVE (NEGATIVE); INFLUENZA B NEGATIVE (NEGATIVE)
[2019-06-07] MEDS ORDERED: VANCOMYCIN 2,200 MG in NS 500 ML IV ONE (14:00)
[2019-06-07] MEDS ORDERED: LEVAQUIN 750 MG/D5W 750 MG/150 ML IVPB IV ONE (14:01)
[2019-06-07 14:06] LABS: URINE SOURCE CLEAN CATCH
[2019-06-07 14:08] LABS: BILIRUBIN URINE NEGATIVE (NEGATIVE); BLOOD URINE NEGATIVE (NEGATIVE); COLOR YELLOW; GLUCOSE URINE NEGATIVE (NEGATIVE); KETONE URINE NEGATIVE (NEGATIVE); LEUKOCYTES URINE NEGATIVE (NEGATIVE); NITRITE URINE NEGATIVE (NEGATIVE); PROTEIN URINE TRACE mg/dL (NEGATIVE); SP GRAVITY URINE 1.013; TURBIDITY URINE CLEAR (CLEAR); UROBILINOGEN URINE NORMAL (NORMAL)
[2019-06-07 14:10] LABS: UR EPITHELIAL CELLS <10 /HPF (<10); URINE BACTERIA NEGATIVE /HPF; URINE RBC <10 /HPF (<10); URINE WBC <10 /HPF (<10)
[2019-06-07] MEDS ORDERED: LEVAQUIN 750 MG in NS 150 ML IV ONE (15:00)
[2019-06-07] MEDS ORDERED: PATIENT'S OWN MED NAS PRN (16:52)
[2019-06-07] MEDS ORDERED: NITROGLYCERIN LINGUAL SPRAY SL PRN (16:52)
[2019-06-07] MEDS: STARLIX PO SCH (17:31)
--- NOTE | 2019-06-07 18:32 | EKG Report ---
Test Performed on : 06/07/2019 11:22:45 AM Test Reason : sob copd pacemaker Blood Pressure : / mmHG Vent. Rate : 090 BPM Atrial Rate : 090 BPM P-R Int : 172 ms QRS Dur : 084 ms QT Int : 360 ms P-R-T Axes : -02 034 065 degrees QTc Int : 440 ms Normal sinus rhythm. Nonspecific ST abnormality Abnormal ECG When compared with ECG of 12-MAR-2019 20:16, aberrant conduction. is no longer present Confirmed by Amol Ballesteros MD ([id number]), associate entertainment editor Doris Blanchard ([id number]) on 07/28/2019 12:37:09 PM
[2019-06-07] MEDS: LASIX PO SCH (20:17)
[2019-06-07] MEDS: IMDUR PO SCH (20:17)
[2019-06-07] MEDS: VALIUM PO SCH (20:17)
[2019-06-07] MEDS: COREG PO SCH (20:17)
[2019-06-07] MEDS: RANEXA PO SCH (20:17)
[2019-06-07] MEDS ORDERED: CRESTOR PO SCH (21:00)
[2019-06-07] MEDS: DUONEB (A & A) INH SCH (21:05)
[2019-06-08] MEDS: DUONEB (A & A) INH SCH ×4 (03:28→21:00)
[2019-06-08] MEDS ORDERED: SYNTHROID PO SCH (07:00)
[2019-06-08] MEDS: STARLIX PO SCH ×3 (08:07→17:16)
[2019-06-08] MEDS ORDERED: NASONEX NASAL SPRAY NAS SCH (09:00)
[2019-06-08] MEDS ORDERED: BENICAR PO SCH (09:00)
[2019-06-08] MEDS: SYNTHROID PO SCH (09:51)
[2019-06-08] MEDS: EFFIENT PO SCH (09:51)
[2019-06-08] MEDS: VALIUM PO SCH ×3 (09:51→23:17)
[2019-06-08] MEDS: RANEXA PO SCH ×2 (09:52→20:06)
[2019-06-08] MEDS: IMDUR PO SCH ×2 (09:52→20:05)
[2019-06-08] MEDS: ASPIRIN EC PO SCH (09:52)
[2019-06-08] MEDS: ALLEGRA PO SCH (09:52)
[2019-06-08] MEDS: KLOR-CON PO SCH (09:52)
[2019-06-08] MEDS: COREG PO SCH ×2 (09:52→20:06)
[2019-06-08] MEDS: LASIX PO SCH ×2 (09:54→20:05)
[2019-06-08] MEDS: FLONASE NAS SCH (09:59)
[2019-06-08 11:29] LABS: BE 2.9 mmoll (-3.0-3.0); BLOOD TYPE ARTERIAL; HCO3-(ACT) 27.2 mmoll (20.0-26.0); METHB 0.8 % (0.0-1.5); O2(CT) 13.1 mL/dL (15.0-23.0); O2HB 94.4 % (95.0-99.0); PO2(98.6) 74 mmHg (60-100); SAMPLE BLOOD; THB 9.8 g/dL (11.5-17.4); pH(98.6) 7.35 (7.35-7.45)
[2019-06-08 11:31] LABS: ALLEN TEST YES; MODALITY CANNULA
[2019-06-08 11:32] LABS: PCO2(98.6) 53 mmHg (35-45)
[2019-06-08 12:18] LABS: BASO# 0.01 X1000 (0.0-0.2); BASO% 0.2 % (0.0-0.8); EOS# 0.27 X1000 (0.0-0.7); EOS% 4.7 % (0.0-10.0); HEMATOCRIT 29.4 % (42.0-52.0); HEMOGLOBIN 8.9 g/dL (14.0-18.0); LYMPH# 1.25 X1000 (1.2-3.4); LYMPH% 21.6 % (20.5-51.1); MCH 30.6 PG (27-31); MCHC 30.3 g/dL (33-37); MONO# 0.69 X1000 (0.11-0.59); MONO% 11.9 % (1.7-9.3); MPV 9.8 FL (7.4-10.4); NEUT# 3.56 X1000 (1.4-6.5); NEUT% 61.6 % (42.2-75.2); PLT 167 X1000 (130-400); RBC 2.91 XMIL (4.7-6.1); RDW 13.3 % (11.5-14.5); WBC 5.78 X1000 (4.8-10.8)
--- NOTE | 2019-06-08 12:23 | PROGRESS NOTE ---
DATE: 06/08/2019 He was admitted yesterday afternoon for a febrile illness with generalized prostration, negative flu swabs. A CT of the chest showed fibrotic changes in the lower lobe. No evidence of an acute pulmonary disease. Some constipation was apparent. His plan film showed inspiration suboptimal, questionable atelectasis over the lung bases. Appearance of the chest has not changed significantly since 03/15/2019. The patient has a history of repeated episodes of cough and shortness of breath and presumed pneumonitis. Yesterday while in the ER, he had a pH of 7.4, pCO2 of 47, pO2 of 45. His lactate was 1.2. These blood gases were done on room air. His hematology showed some anemia, hematocrit was 34, white count 7950 with slight left shift. BUN was 23, creatinine 1.7. Today, he is still a little bit lethargic and drowsy. He is coughing but nonproductively. Lungs sound relatively clear, but his mental status seems to be a little cloudy. We are going to repeat some blood work and see what we have. cc: Amol Ballesteros MD
[2019-06-08 12:28] LABS: ALBUMIN 3.8 g/dL (3.5-5.0); CALCIUM 8.6 mg/dL (8.8-10.2); CREATININE 1.7 mg/dL (0.7-1.2); POTASSIUM 4.3 mmol/L (3.5-5.1); TOTAL BILIRUBIN 0.5 mg/dL (0.20-1.00); TOTAL PROTEIN 6.6 g/dL (6.3-8.3)
[2019-06-08] MEDS: PATIENT'S OWN MED TOP SCH (13:45)
[2019-06-08] MEDS: VANCOMYCIN 1,800 MG in NS 250 ML IV SCH (19:46)
[2019-06-08] MEDS: CRESTOR PO SCH (20:06)
[2019-06-08] MEDS: BENICAR PO SCH (20:09)
[2019-06-09] MEDS: DUONEB (A & A) INH SCH ×4 (03:36→20:12)
[2019-06-09] MEDS: SYNTHROID PO SCH (06:15)
[2019-06-09] MEDS: KLOR-CON PO SCH (09:19)
[2019-06-09] MEDS: STARLIX PO SCH ×3 (09:20→15:13)
[2019-06-09] MEDS: VALIUM PO SCH ×3 (09:25→21:29)
[2019-06-09] MEDS: ASPIRIN EC PO SCH (09:25)
[2019-06-09] MEDS: EFFIENT PO SCH (09:25)
[2019-06-09] MEDS: IMDUR PO SCH ×2 (09:25→21:29)
[2019-06-09] MEDS: LASIX PO SCH ×2 (09:25→21:29)
[2019-06-09] MEDS: ALLEGRA PO SCH (09:25)
[2019-06-09] MEDS: RANEXA PO SCH ×2 (09:26→21:29)
[2019-06-09] MEDS: FLONASE NAS SCH (09:27)
--- NOTE | 2019-06-09 09:43 | PROGRESS NOTE ---
DATE: 06/09/2019 SUBJECTIVE: The patient had an uneventful night, is feeling better. Still has a little bit of a cough. No head cold. No flu-like symptoms. DIAGNOSTIC DATA: We repeated some labs yesterday. His white count fell from 7950 to 5780. Hematocrit dropped from 33.8 to 29.4. Platelets were normal. Differential was normal. His chemistries showed his renal function remains the same, BUN is 25, creatinine 1.7, with a GFR of 40 like before. Electrolytes are normal. Blood sugars are fine. Lactate level is 5.5. Liver enzymes are normal. No growth in his blood cultures. OBJECTIVE: Exam remains normal. ASSESSMENT AND PLAN: We will continue therapy and will repeat a chest x-ray to see if there is any evolution of the pneumonia that has been the case many times before. cc: Amol Ballesteros MD
[2019-06-09 13:18] LABS: BASO# 0.01 X1000 (0.0-0.2); BASO% 0.2 % (0.0-0.8); EOS# 0.18 X1000 (0.0-0.7); EOS% 2.8 % (0.0-10.0); HEMATOCRIT 30.2 % (42.0-52.0); HEMOGLOBIN 9.2 g/dL (14.0-18.0); IMM GRAN# 0.01 X1000 (0.0-0.04); IMM GRAN% 0.2 % (0.0-0.5); LYMPH% 23.2 % (20.5-51.1); MCH 30.7 PG (27-31); MCHC 30.5 g/dL (33-37); MCV 100.7 FL (81-99); MONO# 0.65 X1000 (0.11-0.59); MPV 9.5 FL (7.4-10.4); NEUT# 4.12 X1000 (1.4-6.5); NEUT% 63.6 % (42.2-75.2); PLT 174 X1000 (130-400); RDW 13.1 % (11.5-14.5); WBC 6.47 X1000 (4.8-10.8)
[2019-06-09 13:27] LABS: ALBUMIN 3.8 g/dL (3.5-5.0); CALCIUM 8.9 mg/dL (8.8-10.2); CREATININE 2.1 mg/dL (0.7-1.2); POTASSIUM 4.5 mmol/L (3.5-5.1); TOTAL BILIRUBIN 0.5 mg/dL (0.20-1.00); TOTAL PROTEIN 6.9 g/dL (6.3-8.3)
[2019-06-09] MEDS: COREG PO SCH ×2 (14:11→21:29)
--- NOTE | 2019-06-09 14:24 | Diag Imaging Result Doc PS360 ---
CHEST-2 VIEWS - 06/09/2019 INDICATION: pneumonia COMPARISON: 06/07/2019 FINDINGS: Stable pacemaker. Stable sternotomy wires. Stable critically low lung volumes with right hemidiaphragm elevation. Stable patchy bibasilar atelectasis. Heart size remains grossly normal. IMPRESSION: Nonspecific findings. No change from prior. Electronically signed by Case Chavis 06/09/2019 2:22 PM
[2019-06-09] MEDS: LEVAQUIN 750 MG/D5W 750 MG/150 ML IVPB IV SCH (15:05)
[2019-06-09] MEDS: PATIENT'S OWN MED TOP SCH (15:10)
[2019-06-09] MEDS ORDERED: NS 1,000 ML IV ONE (17:31)
[2019-06-09] MEDS: CRESTOR PO SCH (21:29)
[2019-06-09] MEDS: BENICAR PO SCH (21:29)
[2019-06-10] MEDS: DUONEB (A & A) INH SCH ×4 (02:10→20:16)
[2019-06-10] MEDS: VANCOMYCIN 1,800 MG in NS 250 ML IV SCH (02:45)
[2019-06-10 04:41] LABS: BE 3.8 mmoll (-3.0-3.0); BLOOD TYPE ARTERIAL; HCO3-(ACT) 27.9 mmoll (20.0-26.0); METHB 1.3 % (0.0-1.5); O2(CT) 11.2 mL/dL (15.0-23.0); PO2(98.6) 76 mmHg (60-100); SAMPLE BLOOD; SAO2 96.2 % (95.0-100.0); THB 8.4 g/dL (11.5-17.4); pH(98.6) 7.36 (7.35-7.45)
[2019-06-10 04:44] LABS: ALLEN TEST YES; MODALITY BI PAP; PCO2(98.6) 53 mmHg (35-45)
[2019-06-10 05:20] LABS: BASO# 0.01 X1000 (0.0-0.2); BASO% 0.2 % (0.0-0.8); EOS# 0.05 X1000 (0.0-0.7); EOS% 1.1 % (0.0-10.0); HEMATOCRIT 27.2 % (42.0-52.0); HEMOGLOBIN 8.2 g/dL (14.0-18.0); LYMPH# 1.27 X1000 (1.2-3.4); LYMPH% 28.7 % (20.5-51.1); MCH 30.4 PG (27-31); MCHC 30.1 g/dL (33-37); MCV 100.7 FL (81-99); MONO# 0.45 X1000 (0.11-0.59); MONO% 10.2 % (1.7-9.3); MPV 9.9 FL (7.4-10.4); NEUT# 2.65 X1000 (1.4-6.5); NEUT% 59.8 % (42.2-75.2); PLT 162 X1000 (130-400); RDW 12.9 % (11.5-14.5); WBC 4.43 X1000 (4.8-10.8)
[2019-06-10 05:31] LABS: ALBUMIN 3.3 g/dL (3.5-5.0); CALCIUM 8.3 mg/dL (8.8-10.2); CREATININE 2.1 mg/dL (0.7-1.2); POTASSIUM 4.5 mmol/L (3.5-5.1); TOTAL BILIRUBIN 0.6 mg/dL (0.20-1.00); TOTAL PROTEIN 6.2 g/dL (6.3-8.3)
[2019-06-10] MEDS: SYNTHROID PO SCH (06:15)
[2019-06-10] MEDS: STARLIX PO SCH ×3 (08:38→16:41)
[2019-06-10] MEDS: ALLEGRA PO SCH (08:40)
[2019-06-10] MEDS: ASPIRIN EC PO SCH (08:40)
[2019-06-10] MEDS: DURAGESIC 75 MICROGM/HR PATCH TD SCH (08:40)
[2019-06-10] MEDS: EFFIENT PO SCH (08:40)
[2019-06-10] MEDS: FLONASE NAS SCH (08:40)
[2019-06-10] MEDS: LASIX PO SCH ×2 (08:40→20:35)
[2019-06-10] MEDS: KLOR-CON PO SCH (08:40)
[2019-06-10] MEDS: RANEXA PO SCH ×2 (08:40→20:35)
[2019-06-10] MEDS: COREG PO SCH ×2 (08:41→20:37)
[2019-06-10] MEDS: IMDUR PO SCH ×2 (08:41→20:36)
[2019-06-10] MEDS: PATIENT'S OWN MED TOP SCH (08:41)
[2019-06-10] MEDS: VALIUM PO SCH ×3 (08:41→20:37)
[2019-06-10 11:41] LABS: INFLUENZA A NEGATIVE (NEGATIVE); INFLUENZA B NEGATIVE (NEGATIVE)
[2019-06-10] MEDS: CRESTOR PO SCH (20:35)
[2019-06-10] MEDS: BENICAR PO SCH (20:36)
[2019-06-11] MEDS: DUONEB (A & A) INH SCH ×4 (03:02→20:15)
[2019-06-11] MEDS: SYNTHROID PO SCH (06:27)
[2019-06-11] MEDS: ASPIRIN EC PO SCH (08:15)
[2019-06-11] MEDS: RANEXA PO SCH ×2 (08:15→21:08)
[2019-06-11] MEDS: KLOR-CON PO SCH (08:15)
[2019-06-11] MEDS: ALLEGRA PO SCH (08:15)
[2019-06-11] MEDS: EFFIENT PO SCH (08:15)
[2019-06-11] MEDS: LASIX PO SCH ×2 (08:15→21:08)
[2019-06-11] MEDS: STARLIX PO SCH ×3 (08:15→16:59)
[2019-06-11] MEDS: FLONASE NAS SCH (08:16)
[2019-06-11] MEDS: COREG PO SCH ×2 (08:20→21:09)
[2019-06-11] MEDS: IMDUR PO SCH ×2 (08:20→21:09)
[2019-06-11] MEDS: VALIUM PO SCH ×3 (08:20→21:08)
[2019-06-11] MEDS: PATIENT'S OWN MED TOP SCH (08:20)
[2019-06-11 09:36] LABS: ALBUMIN 3.7 g/dL (3.5-5.0); BASO# 0.01 X1000 (0.0-0.2); BASO% 0.1 % (0.0-0.8); CALCIUM 8.5 mg/dL (8.8-10.2); CREATININE 2.3 mg/dL (0.7-1.2); EOS# 0.26 X1000 (0.0-0.7); EOS% 3.7 % (0.0-10.0); HEMATOCRIT 29.2 % (42.0-52.0); HEMOGLOBIN 8.7 g/dL (14.0-18.0); IMM GRAN# 0.01 X1000 (0.0-0.04); IMM GRAN% 0.1 % (0.0-0.5); LYMPH# 1.82 X1000 (1.2-3.4); LYMPH% 25.8 % (20.5-51.1); MCH 30.2 PG (27-31); MCHC 29.8 g/dL (33-37); MCV 101.4 FL (81-99); MONO# 0.75 X1000 (0.11-0.59); MONO% 10.6 % (1.7-9.3); MPV 9.8 FL (7.4-10.4); NEUT% 59.7 % (42.2-75.2); PLT 164 X1000 (130-400); POTASSIUM 4.7 mmol/L (3.5-5.1); RBC 2.88 XMIL (4.7-6.1); RDW 13.1 % (11.5-14.5); TOTAL BILIRUBIN 0.5 mg/dL (0.20-1.00); TOTAL PROTEIN 6.6 g/dL (6.3-8.3); WBC 7.05 X1000 (4.8-10.8)
[2019-06-11] MEDS: VANCOMYCIN 1,800 MG in NS 250 ML IV SCH (14:02)
[2019-06-11] MEDS: LEVAQUIN 750 MG/D5W 750 MG/150 ML IVPB IV SCH (16:35)
[2019-06-11 18:15] LABS: URINE SOURCE CLEAN CATCH
[2019-06-11 18:17] LABS: BILIRUBIN URINE NEGATIVE (NEGATIVE); BLOOD URINE NEGATIVE (NEGATIVE); COLOR YELLOW; GLUCOSE URINE NEGATIVE (NEGATIVE); KETONE URINE NEGATIVE (NEGATIVE); LEUKOCYTES URINE NEGATIVE (NEGATIVE); NITRITE URINE NEGATIVE (NEGATIVE); PH URINE 5.5; PROTEIN URINE TRACE mg/dL (NEGATIVE); SP GRAVITY URINE 1.015; TURBIDITY URINE HAZY (CLEAR); UROBILINOGEN URINE NORMAL (NORMAL)
[2019-06-11] MEDS ORDERED: LINZESS PO ONE (18:18)
[2019-06-11 18:33] LABS: UR EPITHELIAL CELLS >10 /HPF (<10); URINE RBC 20-40 /HPF (<10); URINE WBC 20-40 /HPF (<10)
[2019-06-11 18:34] LABS: URINE BACTERIA 2+ /HPF; URINE YEAST PRESENT
--- NOTE | 2019-06-11 18:34 | PROGRESS NOTE ---
DATE: 06/11/2019 SUBJECTIVE: He continues to cough, not very productively. OBJECTIVE: Vital Signs: He has had a temperature of 98 axillary, 98 orally, and pulse is in the 70s. Respiratory rate 20, blood pressure 102/44 and 92/46,100%. LABORATORY DATA: Microbiology was negative. His white count has gotten a little higher at 7500, hematocrit 29.2, platelet count 164. Chemistries: Electrolytes were fine. Sodium was 141, 4.7, chloride 102, and carbon dioxide 27. BUN is 36, creatinine is 2.3. These have not significantly changed. Blood sugar is 122 random. Overall I think he looks better today. His last chest x-ray was on the 16, and it was negative at that time. ASSESSMENT/PLAN: We will probably repeat his chest x-ray in the morning to see if he has made any difference on his x-ray, but overall I think he is better. We are going to give him something to make him have a bowel movement. cc: Amol Ballesteros MD
[2019-06-11] MEDS: BENICAR PO SCH (21:08)
[2019-06-11] MEDS: CRESTOR PO SCH (21:08)
[2019-06-12] MEDS: DUONEB (A & A) INH SCH ×4 (04:03→20:21)
[2019-06-12] MEDS: SYNTHROID PO SCH (06:36)
[2019-06-12] MEDS: ASPIRIN EC PO SCH (08:01)
[2019-06-12] MEDS: VALIUM PO SCH ×3 (08:01→20:48)
[2019-06-12] MEDS: RANEXA PO SCH ×2 (08:01→20:47)
[2019-06-12] MEDS: STARLIX PO SCH ×3 (08:01→16:31)
[2019-06-12] MEDS: EFFIENT PO SCH (08:01)
[2019-06-12] MEDS: ALLEGRA PO SCH (08:01)
[2019-06-12] MEDS: KLOR-CON PO SCH (08:01)
[2019-06-12] MEDS: LASIX PO SCH ×2 (08:01→20:47)
[2019-06-12] MEDS: COREG PO SCH ×2 (08:02→20:47)
[2019-06-12] MEDS: FLONASE NAS SCH (08:02)
[2019-06-12] MEDS: IMDUR PO SCH ×2 (08:02→20:47)
[2019-06-12] MEDS: PATIENT'S OWN MED TOP SCH (08:02)
[2019-06-12 08:49] LABS: BASO# 0.02 X1000 (0.0-0.2); BASO% 0.3 % (0.0-0.8); EOS# 0.39 X1000 (0.0-0.7); EOS% 6.1 % (0.0-10.0); HEMATOCRIT 28.7 % (42.0-52.0); HEMOGLOBIN 8.7 g/dL (14.0-18.0); IMM GRAN# 0.02 X1000 (0.0-0.04); IMM GRAN% 0.3 % (0.0-0.5); LYMPH# 1.79 X1000 (1.2-3.4); LYMPH% 27.8 % (20.5-51.1); MCH 30.6 PG (27-31); MCHC 30.3 g/dL (33-37); MCV 101.1 FL (81-99); MONO# 0.76 X1000 (0.11-0.59); MONO% 11.8 % (1.7-9.3); MPV 9.3 FL (7.4-10.4); NEUT# 3.46 X1000 (1.4-6.5); NEUT% 53.7 % (42.2-75.2); PLT 162 X1000 (130-400); RBC 2.84 XMIL (4.7-6.1); RDW 12.9 % (11.5-14.5); WBC 6.44 X1000 (4.8-10.8)
[2019-06-12 08:58] LABS: ALBUMIN 3.5 g/dL (3.5-5.0); CALCIUM 8.5 mg/dL (8.8-10.2); POTASSIUM 4.5 mmol/L (3.5-5.1); TOTAL BILIRUBIN 0.5 mg/dL (0.20-1.00); TOTAL PROTEIN 6.5 g/dL (6.3-8.3)
--- NOTE | 2019-06-12 16:17 | Diag Imaging Result Doc PS360 ---
EXAM: CHEST-2 VIEWS - 06/12/2019 HISTORY: cough TECHNIQUE: Chest two views COMPARISON: 06/09/2019 FINDINGS: Heart size appears within normal limits. There are sternal wires from previous surgery and transvenous cardiac pacemaker again seen. Inspiration is shallow with basilar atelectasis, similar to prior. The upper lungs appear clear. There is no pleural effusion or pneumothorax identified. IMPRESSION: Shallow inspiration, with associated basilar atelectasis. Electronically signed by Adam Anaya 06/12/2019 4:15 PM
[2019-06-12] MEDS: CRESTOR PO SCH (20:47)
[2019-06-12] MEDS: BENICAR PO SCH (20:47)
[2019-06-13] MEDS: VANCOMYCIN 1,800 MG in NS 250 ML IV SCH (01:44)
[2019-06-13] MEDS: DUONEB (A & A) INH SCH ×4 (02:52→21:04)
[2019-06-13] MEDS: STARLIX PO SCH ×3 (08:15→17:04)
[2019-06-13] MEDS: SYNTHROID PO SCH (08:15)
[2019-06-13] MEDS: VALIUM PO SCH ×3 (10:27→22:59)
[2019-06-13] MEDS: COREG PO SCH ×2 (10:27→21:24)
[2019-06-13] MEDS: IMDUR PO SCH ×2 (10:27→21:23)
[2019-06-13] MEDS: EFFIENT PO SCH (10:27)
[2019-06-13] MEDS: RANEXA PO SCH ×2 (10:28→21:23)
[2019-06-13] MEDS: ASPIRIN EC PO SCH (10:28)
[2019-06-13] MEDS: ALLEGRA PO SCH (10:28)
[2019-06-13] MEDS: LASIX PO SCH ×2 (10:28→21:24)
[2019-06-13] MEDS: KLOR-CON PO SCH (10:28)
[2019-06-13] MEDS: DURAGESIC 75 MICROGM/HR PATCH TD SCH (10:28)
[2019-06-13] MEDS: FLONASE NAS SCH (10:29)
[2019-06-13] MEDS: PATIENT'S OWN MED TOP SCH (12:25)
[2019-06-13] MEDS ORDERED: LINZESS PO ONE (13:01)
[2019-06-13] MEDS ORDERED: SORBITOL PO ONE (13:02)
[2019-06-13] MEDS: LEVAQUIN PO SCH (14:37)
[2019-06-13] MEDS: CRESTOR PO SCH (21:23)
[2019-06-13] MEDS: BENICAR PO SCH (21:23)
[2019-06-14] MEDS: DUONEB (A & A) INH SCH ×4 (02:42→20:18)
[2019-06-14] MEDS: LINZESS PO SCH (06:42)
[2019-06-14] MEDS: SYNTHROID PO SCH (06:43)
[2019-06-14] MEDS: STARLIX PO SCH ×3 (06:43→16:16)
[2019-06-14] MEDS ORDERED: SORBITOL PO ONE (07:31)
--- NOTE | 2019-06-14 08:20 | PROGRESS NOTE ---
DATE: 06/14/2019 CURRENT VITAL SIGNS: Temperature 97.4 axillary, pulse is 60, respiratory rate 18, BP 91/54. He has an O2 saturation of 98, he has been on room air. Still has a cough, sounds productive, but does not really cough up much phlegm. His microbiology has all been negative. LABORATORY DATA: His laboratory data reflects a chronic anemia, platelet count and white count are okay. On his chemistries, he has a BUN of 40, a creatinine of 2, for a GFR of 33. We are going to repeat those numbers today. Chest x-ray has only showed hypoventilation. Currently, he has some rhonchi but otherwise okay. He has minimal edema in his legs. cc: Amol Ballesteros MD
[2019-06-14] MEDS: LASIX PO SCH ×2 (08:34→21:37)
[2019-06-14] MEDS: COREG PO SCH ×2 (08:34→21:32)
[2019-06-14] MEDS: ALLEGRA PO SCH (08:34)
[2019-06-14] MEDS: RANEXA PO SCH ×2 (08:34→21:38)
[2019-06-14] MEDS: IMDUR PO SCH ×2 (08:34→21:35)
[2019-06-14] MEDS: ASPIRIN EC PO SCH (08:35)
[2019-06-14] MEDS: FLONASE NAS SCH (08:35)
[2019-06-14] MEDS: EFFIENT PO SCH (08:35)
[2019-06-14] MEDS: KLOR-CON PO SCH (08:35)
[2019-06-14] MEDS: VALIUM PO SCH ×3 (08:35→21:36)
--- NOTE | 2019-06-14 09:38 | PROGRESS NOTE ---
DATE: 06/12/2019 His temperature was 97.7, pulse was 63, respiratory rate was 18, BP 129/71, O2 saturation 2 L was 97. His chest x-ray from that day showed shallow inspiration with associated basilar atelectasis, this being all of his x-ray reports say similarly. His white count was 6440, hematocrit was 28.7, platelet count was 162,000. Chemistries: BUN was 40, creatinine was 2, GFR is estimated 33 still within the same range, creatinine is 2. Electrolytes: Sodium 141, potassium 4.5, chloride 102, CO2 26. LFTs normal. Albumin is normal. He is still coughing. He is still on antibiotics. We have not yet found a pneumonia. This has happened several times in the past all times leading to him having a pneumonia with significant hypoxia and sometimes hypercarbia. He has got BiPAP. He is generally doing about the same, a little edema in his legs, rhonchi in both lung valenzuela, diminished breath sounds. Continue treatment. cc: Amol Ballesteros MD
--- NOTE | 2019-06-14 09:42 | PROGRESS NOTE ---
DATE: 06/13/2019 The patient is a 69-year-old white male admitted with COPD, history of fever, longstanding history of ischemic heart disease. He has been treated with vancomycin and Levaquin. Cultures have been negative. On presentation today, his temperature was 97.8, pulse was 65, respiratory rate was 18, BP 79/47, O2 saturation on 2 L was 95%. Followup BP was 89/50 and subsequently 92/55. He is not particularly fluid overloaded. We are trying to get him up out of bed. He has some edema on both lower extremities, minimal edema in his back. He is still wearing some antidecubitus-type padding on his sacral area. He is still coughing, it still rattles. He does not cough up any phlegm. Everything still remains the same, but he seems to be more alert and not quite as confused and lethargic. He is sleeping on his BiPAP and seems to be doing better. As of yet, it has just been an infectious viral illness I presume. cc: Amol Ballesteros MD
[2019-06-14 09:58] LABS: BASO# 0.02 X1000 (0.0-0.2); BASO% 0.2 % (0.0-0.8); EOS# 0.56 X1000 (0.0-0.7); HEMATOCRIT 28.8 % (42.0-52.0); IMM GRAN# 0.01 X1000 (0.0-0.04); IMM GRAN% 0.1 % (0.0-0.5); LYMPH# 1.27 X1000 (1.2-3.4); LYMPH% 15.8 % (20.5-51.1); MCH 30.8 PG (27-31); MCHC 31.3 g/dL (33-37); MCV 98.6 FL (81-99); MONO# 0.69 X1000 (0.11-0.59); MONO% 8.6 % (1.7-9.3); MPV 9.3 FL (7.4-10.4); NEUT# 5.47 X1000 (1.4-6.5); NEUT% 68.3 % (42.2-75.2); PLT 186 X1000 (130-400); RBC 2.92 XMIL (4.7-6.1); RDW 12.7 % (11.5-14.5); WBC 8.02 X1000 (4.8-10.8)
[2019-06-14 10:15] LABS: ALBUMIN 3.7 g/dL (3.5-5.0); CALCIUM 8.8 mg/dL (8.8-10.2); CREATININE 2.2 mg/dL (0.7-1.2); POTASSIUM 4.4 mmol/L (3.5-5.1); TOTAL BILIRUBIN 0.4 mg/dL (0.20-1.00); TOTAL PROTEIN 6.6 g/dL (6.3-8.3)
[2019-06-14] MEDS: PATIENT'S OWN MED TOP SCH (11:54)
[2019-06-14] MEDS ORDERED: FLEET ENEMA PR ONE (16:41)
[2019-06-14] MEDS: CRESTOR PO SCH (21:36)
[2019-06-14] MEDS ORDERED: CALMOSEPTINE OINTMENT TOP PRN (23:10)
[2019-06-15] MEDS: DUONEB (A & A) INH SCH ×4 (02:12→20:21)
[2019-06-15] MEDS: BENICAR PO SCH ×2 (03:36→23:02)
[2019-06-15] MEDS ORDERED: LINZESS PO SCH (07:00)
[2019-06-15] MEDS: LASIX PO SCH ×2 (08:31→23:04)
[2019-06-15] MEDS: SYNTHROID PO SCH (08:32)
[2019-06-15] MEDS: KLOR-CON PO SCH (08:32)
[2019-06-15] MEDS: LINZESS PO SCH (08:32)
[2019-06-15] MEDS: VALIUM PO SCH ×3 (08:33→23:03)
[2019-06-15] MEDS: IMDUR PO SCH ×2 (08:33→23:03)
[2019-06-15] MEDS: RANEXA PO SCH ×2 (08:33→23:04)
[2019-06-15] MEDS: EFFIENT PO SCH (08:54)
[2019-06-15] MEDS: COREG PO SCH ×2 (08:54→23:04)
[2019-06-15] MEDS: STARLIX PO SCH ×3 (08:54→18:01)
[2019-06-15] MEDS: PATIENT'S OWN MED TOP SCH (08:54)
[2019-06-15] MEDS: FLONASE NAS SCH (08:54)
[2019-06-15] MEDS: ALLEGRA PO SCH (08:54)
[2019-06-15] MEDS: ASPIRIN EC PO SCH (08:54)
[2019-06-15] MEDS ORDERED: VANCOMYCIN 1,800 MG in NS 250 ML IV SCH (10:00)
[2019-06-15] MEDS ORDERED: LINZESS PO ONE (11:14)
[2019-06-15] MEDS ORDERED: FLOMAX PO ONE (11:15)
[2019-06-15 11:39] LABS: BASO# 0.03 X1000 (0.0-0.2); BASO% 0.3 % (0.0-0.8); EOS# 0.18 X1000 (0.0-0.7); EOS% 1.9 % (0.0-10.0); HEMATOCRIT 25.9 % (42.0-52.0); HEMOGLOBIN 8.2 g/dL (14.0-18.0); IMM GRAN# 0.02 X1000 (0.0-0.04); IMM GRAN% 0.2 % (0.0-0.5); LYMPH# 1.49 X1000 (1.2-3.4); MCH 30.9 PG (27-31); MCHC 31.7 g/dL (33-37); MCV 97.7 FL (81-99); MONO# 0.57 X1000 (0.11-0.59); MONO% 6.1 % (1.7-9.3); MPV 9.5 FL (7.4-10.4); NEUT# 7.05 X1000 (1.4-6.5); NEUT% 75.5 % (42.2-75.2); PLT 193 X1000 (130-400); RBC 2.65 XMIL (4.7-6.1); RDW 12.5 % (11.5-14.5); WBC 9.34 X1000 (4.8-10.8)
[2019-06-15 12:17] LABS: ALBUMIN 3.4 g/dL (3.5-5.0); CALCIUM 8.5 mg/dL (8.8-10.2); CREATININE 2.3 mg/dL (0.7-1.2); POTASSIUM 4.2 mmol/L (3.5-5.1); TOTAL BILIRUBIN 0.5 mg/dL (0.20-1.00); TOTAL PROTEIN 6.2 g/dL (6.3-8.3)
--- NOTE | 2019-06-15 12:42 | PROGRESS NOTE ---
DATE: 06/15/2019 SUBJECTIVE: This is a 69-year-old male hospitalized with chronic kidney disease, COPD, and some history of CHF. He had an eventful night last night and had some issues about urinating, unable to initiate a stream, only small amounts came out. Not on any new medications or anything that would make you think it would affect his bladder. He had a fall trying to go to the bathroom. He did not hit his head but scraped up his left elbow. He did not lose consciousness. OBJECTIVE: Currently, he has a temperature of 99.7 axillary, pulse was 70, respiratory rate was 16, blood pressure 107/45. He continues to have 1+ edema in his legs. ASSESSMENT AND PLAN: He fortunately had a bowel movement yesterday finally. He walked a good bit yesterday. We are going to try to walk him some more today. We are going to back off on the vancomycin. He has been on vancomycin for a week or 8 days. We will change him over to p.o. Levaquin. Probably repeat an x-ray. Nothing has come of any of the x-rays, and we may actually do a CT. We are going to give him some Flomax to see if we can help him void. cc: Amol Ballesteros MD
[2019-06-15] MEDS: LEVAQUIN PO SCH (14:01)
[2019-06-15 15:01] LABS: URINE SOURCE CLEAN CATCH
[2019-06-15 15:35] LABS: BILIRUBIN URINE NEGATIVE (NEGATIVE); BLOOD URINE NEGATIVE (NEGATIVE); COLOR YELLOW; GLUCOSE URINE NEGATIVE (NEGATIVE); KETONE URINE NEGATIVE (NEGATIVE); LEUKOCYTES URINE TRACE (NEGATIVE); NITRITE URINE NEGATIVE (NEGATIVE); PROTEIN URINE TRACE mg/dL (NEGATIVE); TURBIDITY URINE HAZY (CLEAR); UROBILINOGEN URINE NORMAL (NORMAL)
[2019-06-15 15:36] LABS: UR EPITHELIAL CELLS <10 /HPF (<10); URINE WBC <10 /HPF (<10)
[2019-06-15 15:37] LABS: URINE BACTERIA 1+ /HPF
[2019-06-15] MEDS: CRESTOR PO SCH (23:04)
[2019-06-16] MEDS: DUONEB (A & A) INH SCH ×4 (02:21→20:29)
[2019-06-16] MEDS: LINZESS PO SCH (06:21)
[2019-06-16] MEDS: SYNTHROID PO SCH (06:21)
[2019-06-16] MEDS: STARLIX PO SCH ×4 (06:22→17:03)
[2019-06-16] MEDS: ASPIRIN EC PO SCH (08:28)
[2019-06-16] MEDS: VALIUM PO SCH ×3 (08:28→20:55)
[2019-06-16] MEDS: ALLEGRA PO SCH (08:28)
[2019-06-16] MEDS: EFFIENT PO SCH (08:28)
[2019-06-16] MEDS: KLOR-CON PO SCH (08:28)
[2019-06-16] MEDS: FLOMAX PO SCH (08:28)
[2019-06-16] MEDS: RANEXA PO SCH ×2 (08:28→20:56)
[2019-06-16] MEDS: DURAGESIC 75 MICROGM/HR PATCH TD SCH (08:28)
[2019-06-16] MEDS: LASIX PO SCH ×2 (08:28→20:57)
[2019-06-16] MEDS: FLONASE NAS SCH (08:28)
[2019-06-16] MEDS: PATIENT'S OWN MED TOP SCH (08:30)
[2019-06-16] MEDS: COREG PO SCH ×2 (08:31→20:54)
[2019-06-16] MEDS: IMDUR PO SCH ×2 (08:31→20:53)
[2019-06-16] MEDS: CRESTOR PO SCH (20:56)
[2019-06-17] MEDS: DUONEB (A & A) INH SCH ×2 (02:30→09:57)
--- NOTE | 2019-06-17 04:25 | PROGRESS NOTE ---
DATE: 06/15/2019 SUBJECTIVE: This is a 69-year-old male who has been hospitalized for a febrile illness associated with hypotension and general frustration and confusion with a background history of ischemic heart disease. OBJECTIVE: Today, his vital signs, temperature was 98.6, pulse 63, respiratory rate 20, blood pressure 94/45. O2 saturation is 98 on nasal cannula. Patient is walking with assistance. Moving his limbs is bad. He still has some fluid. We decided to back off on the Benicar to see if that was contributing to his hypotension and prerenal azotemia. He still takes a low dose Lasix. His exam reveals a little bit of trace edema in his back and his extremities. Pulses are intact. No cords were appreciated. Legs are nontender. LABORATORY DATA: His last renal function from 06/15 was BUN of 51, creatinine 2.3, not different from his admission, creatinine, however, his BUN was up a little bit, 51 versus 36. His lactate has been normal. Urinalysis has been negative on a repeat urinalysis versus the initial urinalysis. Microbiology: Blood cultures, no growth. Urine cultures, no growth times 2. ASSESSMENT AND PLAN: He now has been off of his vancomycin for over a day now. We are going to see if his kidneys start rallying. Trying to push physical therapy. Trying to get him home. Considering stopping the Levaquin that he is taking. It has been over a week now. cc: Amol Ballesteros MD
[2019-06-17] MEDS: LINZESS PO SCH (06:46)
[2019-06-17] MEDS: SYNTHROID PO SCH (06:47)
[2019-06-17 07:48] VITALS: BP 99/49
[2019-06-17] MEDS: STARLIX PO SCH ×2 (08:33→12:00)
[2019-06-17] MEDS: COREG PO SCH (08:33)
[2019-06-17] MEDS: EFFIENT PO SCH (08:33)
[2019-06-17] MEDS: KLOR-CON PO SCH (08:34)
[2019-06-17] MEDS: ASPIRIN EC PO SCH (08:34)
[2019-06-17] MEDS: ALLEGRA PO SCH (08:34)
[2019-06-17] MEDS: RANEXA PO SCH (08:34)
[2019-06-17] MEDS: IMDUR PO SCH (08:34)
[2019-06-17] MEDS: LASIX PO SCH (08:34)
[2019-06-17] MEDS: VALIUM PO SCH (08:34)
[2019-06-17] MEDS: FLOMAX PO SCH (08:35)
[2019-06-17] MEDS: PATIENT'S OWN MED TOP SCH (08:35)
[2019-06-17] MEDS: FLONASE NAS SCH (08:35)
[2019-06-17] MEDS ORDERED: PNEUMOVAX 23 IM ONE (11:43)
--- NOTE | 2019-06-20 17:51 | PROVIDER DOCUMENTATION ---
This chart was entered by Aylin Hernandez Scribe, acting as scribe for Amol Ballesteros MD. HPI-Respiratory General - General Chief Complaint: Shortness of Breath Stated Complaint: SOB Time Seen by Provider: 06/07/19 12:37 Source: patient, family Allergies/Adverse Reactions: Patient Allergies Allergy/AdvReac Type Severity Reaction Status Date / Time No Known Allergies Allergy Verified 06/07/19 11:37 Home Medications: Home Medication List Medication Instructions Recorded Confirmed Last Taken Type Aspirin EC 81 mg PO DAILY 07/05/14 06/07/19 03/12/19 History Carvedilol [Coreg] 12.5 mg PO BID 07/05/14 06/07/19 03/12/19 History Diazepam [Valium] 5 mg PO TID 07/05/14 06/07/19 03/12/19 History Fentanyl 75 Microgm/Hr Patch 1 each TD Q72H 07/05/14 06/07/19 03/10/19 History [Duragesic 75 Microgm/Hr Patch] Furosemide 20 mg PO BID 07/05/14 06/07/19 03/12/19 History Isosorbide Mononitrate E.r. [Imdur] 60 mg PO BID 07/05/14 06/07/19 03/12/19 History Levothyroxine Sodium 150 mcg PO DAILY 07/05/14 06/07/19 03/12/19 History Nateglinide [Starlix] 120 mg PO TID 07/05/14 06/07/19 03/12/19 History ROSUVAstatin [Crestor] 20 mg PO QHS 07/05/14 06/07/19 03/11/19 History Ranolazine [Ranexa] 1,000 mg PO BID 07/05/14 06/07/19 03/12/19 History Fexofenadine [Maya] 1 tab PO DAILY 10/08/15 06/07/19 03/12/19 History Mometasone Nasal Stuyvesant [Nasonex 2 sprays BOGDAN DAILY 10/08/15 06/07/19 03/12/19 History Nasal Stuyvesant] Prasugrel HCl [Effient] 10 mg PO DAILY 10/08/15 06/07/19 03/12/19 History Albuterol Sulfate [Proair Hfa] 2 puff INH Q6HR PRN 03/12/19 06/07/19 03/12/19 History Butorphanol Tartrate 1 spray INTRANASAL PRN PRN 03/12/19 06/07/19 Unknown History Nitroglycerin 1 spray SUBLINGUAL PRN PRN 03/12/19 06/07/19 Unknown History Olmesartan Medoxomil 10 mg PO DAILY 03/12/19 06/07/19 03/11/19 History Potassium Chloride 10 meq PO DAILY 03/12/19 06/07/19 03/12/19 History Testosterone [Androgel] 2 pump TOP QAM 03/12/19 06/07/19 03/12/19 History Tamsulosin [Flomax] 0.4 mg PO DAILY #30 cap 06/17/19 Unknown Rx Walker [Ultra-Light Rollator] 1 ea [facility] PRN PRN #1 ea 06/17/19 Unknown Rx - History of Present Illness-Resp Nature of Presenting Problem: Pt is a 69 yom who presents to the ED w/ a CC of SOB. Pt states that he has a hx of copd and pneumonia. Pt says that she checked his oxygen this evening and it was 84. Pt reports coughing and hoarseness. Pt states that the pt is slightly confused. Quality of Pain: reports: none Onset/Duration: reports: this evening Timing: reports: still present Exposure: reports: unknown cause Cough Quality/Degree: reports: mild Episode Frequency: occasional episodes Current Respiratory Medication Therapy: Initiated see nurses note Modifying Factors: improves with: nothing Associated Symptoms: reports: cough, shortness of breath Similar Symptoms Previously?: Yes Recently seen or treated by another doctor?: Yes Review of Systems - Adult - REVIEW OF SYSTEMS - ADULT Constitutional: reports: see HPI Eyes: reports: no symptoms reported Ears, Nose, Mouth & Throat: reports: see HPI, hoarseness Cardiovascular: reports: no symptoms reported Respiratory: reports: see HPI, cough, shortness of breath Gastrointestinal: reports: no symptoms reported Genitourinary: reports: no symptoms reported Musculoskeletal: reports: no symptoms reported Integumentary: reports: no symptoms reported Neurological: reports: no symptoms reported Psychiatric: reports: no symptoms reported Endocrine: reports: no symptoms reported Hematologic/Lymphatic: reports: no symptoms reported Allergic/Immunologic: reports: no symptoms reported All Other Systems: Reviewed and Negative Past History - Adult - PAST MEDICAL HISTORY-ADULT Review of Records: reports: Old Records Reviewed, Nursing Assessment Review, Medications Reviewed, Social history reviewed & non-contributory. Major Childhood Illnesses: reports: denies history Cardiovascular: reports: CAD, HTN, ID, pacemaker Respiratory: reports: sleep apnea Gastrointestinal: reports: GERD, hemorrhoids Musculoskeletal: reports: arthritis Endocrine/Immune: reports: Diabetes, thyroid disorder - PRIOR SURGERIES/PROCEDURES Surgical/Procedure History: reports: appendectomy, colonoscopy, CABG, cholecystectomy, cardiac stent, pacemaker, esophageal dilation, orthopedic (extremity) - IMMUNIZATION STATUS Childhood Immunizations: See Nurse Assessment Flu Vaccine: See Nurse Assessment - FAMILY HISTORY Family History: reviewed, not pertinent - SOCIAL HISTORY Smoking: quit greater than 1 year Substance Use: denies Living Situation: family Physical Exam-General - PHYSICAL EXAM-ADULT Initial Vital Signs Reviewed: Yes - CONSTITUTIONAL General Appearance: alert, no apparent distress - EYES Eyes: PERRL/EOMI, pink conjunctivae - HEAD, EARS, NOSE, MOUTH & THROAT HENMT: normocephalic/atraumatic, moist mucous membranes - NECK Neck: non-tender, full range of motion, supple, normal inspection - RESPIRATORY Respiratory: negative: normal breath sounds (diminished) - CARDIOVASCULAR Cardiovascular: normal peripheral pulses, regular rate, rhythm - GASTROINTESTINAL (ABDOMEN) Abdominal Exam: normal bowel sounds, other (large) - LYMPHATIC Lymphatic: no adenopathy - MUSCULOSKELETAL Back Exam: normal inspection, no CVA tenderness, no vertebral tenderness Extremity: normal range of motion, non-tender, normal inspection - SKIN Integumentary: warm/dry, ecchymosis (L and R forearm) - PSYCHIATRIC Psych/Mental Status: normal mood/affect, normal thought content, normal thought process, oriented x 3 Progress - PLAN OF CARE/RESULTS Progress/Plan/Lab Results: Orders Category Date Time Status Admit - [facility] Routine AdmDCTranf 06/07/19 14:01 Active Cardiac Monitoring DIRECTED Care 06/07/19 11:13 Completed Neurological Check Q12-HR ASSESS Care 06/07/19 14:01 Active Notify MD of + Sepsis Screen NOW Care 06/07/19 13:17 Completed Notify Physician As Ordered Care 06/07/19 13:17 Completed Oxygen Therapy- ED Nursing DIRECTED Care 06/07/19 11:13 Completed Saline Loc NOW Care 06/07/19 11:13 Completed Vital Signs Order Q 4-HR ASSESS Care 06/07/19 14:01 Active Z-Document. for Tele Applied ORDERED Care 06/07/19 14:01 Completed CHEST-2 VIEWS [RAD] Stat Exams 06/07/19 11:[address] THORAX W/O CONTRAST [CT] Routine Exams 06/07/19 12:18 Completed ABG [RESP] Routine Lab 06/07/19 11:22 Completed BLOOD CULTURE [BLDCUL] Stat Lab 06/07/19 11:50 Completed CBC WITH ELECTRONIC DIFF [HEME] Stat Lab 06/07/19 11:25 Completed CK PROFILE [SP CHEM] Stat Lab 06/07/19 11:25 Completed COMPREHENSIVE METABOLIC PANEL [CHEM] Stat Lab 06/07/19 11:25 Completed Flu [INFLUENZA SCREEN PL] Stat Lab 06/07/19 13:10 Completed LACTATE, PLASMA [CHEM] Lab 06/07/19 11:25 Completed PRO B-NATRIURETIC PEPTIDE Stat Lab 06/07/19 11:25 Completed PROTIME WITH INR [COAG] Stat Lab 06/07/19 11:25 Completed PTT [COAG] Stat Lab 06/07/19 11:25 Completed TROPONIN T Stat Lab 06/07/19 11:25 Completed URINALYSIS W/POSS RFLX CULT [URINALYSIS] Stat Lab 06/07/19 13:50 Completed 0.9% Sodium Chloride Inj [Ns] 1,000 ml Med 06/07/19 14:01 Discontinued IV 150 mls/hr 0.9% Sodium Chloride Inj [Ns] 1,000 ml Med 06/07/19 13:33 Discontinued IV 999 mls/hr Acetaminophen [Tylenol] Med 06/07/19 13:32 Discontinued 650 mg PO NOW ONE Albuterol 2.5MG/Ipratrop 0.5MG [Duoneb (A & A)] Med 06/07/19 13:20 Discontinue d 3 ml INH NOW ONE Levofloxacin 750 mg/D5w [Levaquin 750 mg/D5w] Med 06/09/19 15:00 Discontinued 750 mg in 150 ml IV Q48H Levofloxacin [Levaquin] 750 mg Med 06/07/19 15:00 Discontinued 0.9% Sodium Chloride Inj [Ns] 150 ml IV NOW Neomycin/Bacitrcn/Polymyx Oint [Neosporin Ointment Med 06/07/19 11:43 Discontinued Packet] 2 each TOP NOW ONE Pharmacy Order [Vancomycin IV Per Pharmacy] Med 06/07/19 13:30 Discontinued 1 each MISC DIRECTED Vancomycin 1,800 mg Med 06/08/19 20:00 Discontinued 0.9% Sodium Chloride Inj [Ns] 250 ml IV Q30H Vancomycin 2,200 mg Med 06/07/19 14:00 Discontinued 0.9% Sodium Chloride Inj [Ns] 500 ml IV ONCE Aerosol Treatments Stat Oth 06/07/19 13:20 Completed CPAP Stat Oth 06/07/19 13:28 Completed Oxygen Device Routine Oth 06/07/19 14:01 Completed Telemetry [OM.EQ] Routine Oth 06/07/19 14:01 Active Transfer/Admit Order [TRANSFER] Routine Transfer 06/07/19 13:16 Completed Result Diagrams: 06/15/19 11:25 06/15/19 11:25 - EKG 1 Time of EKG reading by physician:: 11:22 EKG Read and Signed by:: Amol Ballesteros EKG Interpretation (*Must complete 3 of following elements*): Abnormal (rate [address] abnormality) Departure - Departure Date of Disposition Decision: 06/07/19 Time of Disposition Decision: 14:45 DIAGNOSIS: SOB (shortness of breath), Respiratory failure, Febrile illness Disposition: ADMITTED INPATIENT 09 Certified Medical Emergency: Emergent Condition: Stable - Critical Care Note This patient required my direct & personal management of CC.: No Attestation - Physician/ YOLA Attestation Patient care was provided by Advanced Practice Provider:: No The physician spent face to face time with patient:: Yes Advanced Practice Provider documentation review:: Supervising physician onsite and consulted in the evaluation and care of this patient. The physician did have a face to face encounter with the patient. This chart was documented by the indicated scribe, (Aylin Hernandez Scribe) and accurately reflects the services I performed and decisions made by me, Amol Ballesteros MD, as attested by the provider's signature.
--- NOTE | 2019-07-24 10:54 | HISTORY AND PHYSICAL ---
HISTORY OF PRESENT ILLNESS: He presented with shortness of breath. The patient is 69 years old and was brought to the ER because of shortness of breath. He was brought in by his who relates that the patient has had recurrent episodes of COPD and pneumonia associated with mental changes, confusion and poor responsiveness. Today, his had his oxygen sat; and it was 84. He was coughing and hoarse and states that he is slightly confused, as previously. This started the evening before. He has occasional episodes like this. So, he was seen in the ER. On laboratory data he had a white count on admission of 4,430, hematocrit 27.2, platelet count 162,000. His blood gas on 06/07 pH was 7.40, pCO2 47, O2 45.0 on FIO2 of 21%. His carboxyhemoglobin was 1.4. His chemistries showed a sodium of 144, potassium 4.6, chloride 104, C02 27, BUN 23, creatinine 1.7, GFR 40, glucose 144, calcium 9.3, total bilirubin 0.7, ALT 13, AST 9, alkaline phosphate 98, CK 71. Troponins were negative. BNP slightly elevated at 769. Plasma lactate was 1.3. His serologies were negative for flu. His urinalysis on admission 04/06 pH was 6, otherwise negative. So, he had a chest x-ray on day of admission. The chest x-ray showed poor inspiration which is what typically happens when he has these spells with atelectasis over the lung bases. This appearance is not significantly changed. As before, we had to demonstrate that these pneumonias by CT as they did not show up on standard x-rays, so we proceeded with CT like we have done in the past. This study currently was compared to a 03/12/2019 study. There are opacities present in the posterior costophrenic sulci bilaterally. The ill-defined opacities in the lingula and right middle lobe which were present on 03/12/2019 are no longer present. The basilar opacities have not changed and are likely related to fibrosis. There is no abnormal fluid collection. There is extensive coronary calcifications, previous sternotomy, prominent mediastinal nodes which have not changed significantly in appearance since the previous study. The regional skeleton is stable in appearance, and there is a fairly large amount of stool in the visualized portion of the colon. So, we admitted him to the hospital for IV therapy. ALLERGIES: He has no known allergies. MEDICATIONS: He takes aspirin 81 mg daily. Carvedilol 12.5 b.i.d. Valium 5 p.o. t.i.d. Fentanyl patch 1 q 72 hours which he has been doing for years for chronic pain. He takes Lasix 20 mg b.i.d. Isosorbide 60 mg b.i.d. Levothyroxine 150 daily. Starlix 120 t.i.d. Crestor 20 q bedtime. Ranexa 1000 b.i.d. Maya 1 daily. Effient 10 daily. Albuterol inhalers p.r.n. q 6. P.r.n. nitroglycerin spray. Benicar 10 daily. Potassium chloride 10 daily. Testosterone AndroGel 2 pumps daily. Flomax daily. PAST MEDICAL HISTORY: He has diabetes and thyroid for quite some time. He has some arthritic changes involving various injuries in the past that cause him chronic pain. He has reflux and hemorrhoids. He has sleep apnea. He has some COPD. He has coronary artery disease, hypertension, AL and a pacemaker. PAST SURGICAL HISTORY: He is status post appendectomy, CABG, cholecystectomy, cardiac stents, pacemaker, esophageal dilatation, orthopedic surgeries. SOCIAL HISTORY: He is a distant ex-smoker. REVIEW OF SYSTEMS: He has not had any recent significant change, weight gain or weight loss. No change in visual acuity. ENT no pharyngitis, sinusitis or otitis; but he does have hoarseness. Cardiovascular: He reports no chest pain or palpitations. He has trace edema. No PND. No orthopnea. No claudication. No TIA type symptoms. Respiratory: He has had cough, shortness of breath and running a fever. Gastrointestinal: No nausea, vomiting, diarrhea, constipation, melena, hematochezia. Genitourinary: No dysuria, hematuria, polyuria, pyuria. No prostate problems. Musculoskeletal: Chronic pain, otherwise no new problems in that department. Skin: No rashes or lesions. Neurological: No focal neurological deficits, but he has some global kind of confusion which has happened previously. Psychiatric: Negative. Endocrine: On thyroid hormonal replacement and diabetic medications. No changes there. Hematologic: No anemia. No bleeding. No clotting problems. Allergic: He has a history of allergies and nasal symptoms that he has been treated for, otherwise negative. On admission he was cultured. PHYSICAL EXAMINATION: VITAL SIGNS: Initial temperature on 07/08 he was afebrile, blood pressure 136/78, pulse 94, respirations 20, but his O2 sat was 90. When we saw him in the ER his pulse was 91, respirations 20, blood pressure 140/82. O2 sat was 90. HEENT: Head was normocephalic and obese. Eyes were PERRL, EOMs intact. SC clear. Nares patent. Oropharynx negative. NECK: Short without JVD or thyromegaly. CHEST: Diminished breath sounds bilaterally. No consolidative features. No rubs appreciated. CARDIOVASCULAR: He has a regular rhythm and rate. ABDOMEN: Soft. No hepatosplenomegaly. No CVA tenderness. EXTREMITIES: He has some trace edema. Pulses were present. No cellulitis. No arthritis. He was admitted for hypoxia, mild altered sensorium, COPD, viral versus bacterial pneumonitis, diabetes, ischemic heart disease, pacemaker. We will put him on broad spectrum antibiotics and culture him. He has no flu as well. Will follow him upstairs. cc: Amol Ballesteros MD
--- NOTE | 2019-07-24 12:41 | DISCHARGE SUMMARY ---
ADMISSION DATE: 06/07/2019 DISCHARGE DATE: 06/17/2019 HISTORY/HOSPITAL COURSE: This is a 69-year-old patient that has multiple medical problems, ischemic heart disease, chronic pain, thyroid hormone replacement, diabetes, dyslipidemia, anti- anginal therapy, Effient anticoagulant therapy, and testosterone along with Benicar 10. He was placed in the hospital after they presented to the E.R. The was doing most of the complaining and said that he was short of breath with a background history of COPD and pneumonia. She checked his oxygen and O2 saturation was 84%. He was coughing and he was hoarse. The patient has been repeatedly in the hospital seemingly the last 2 years or so with a similar presentation, cough and cold type symptoms associated with desaturation and hospitalization and CTs that ultimately reveal that he has a pneumonia. Most importantly, he has hypertension, dyslipidemia, and coronary artery disease with a history of an TN and a pacemaker. He has sleep apnea, diabetes, and thyroid disorders. He has also had issues with esophageal dilatation. He was a former smoker. He does not smoke now. On presentation in the E.R. he mostly had diminished breath sounds and no significant edema and he had an EKG that showed nonspecific ST segment changes so he was hospitalized primarily with shortness of breath. His microbiological database said that he had from06/07 two blood cultures that were negative and from 06/11 and from 06/15 two negative urine cultures. IMAGING REPORTS: He had initially a chest ray that showed questionable atelectasis, otherwise unchanged form previous. CT of his chest showed opacities present in the posterior costophrenic sulci bilaterally. Ill-defined opacities in the lingula and middle lobe which were present on 03/12/2019 are no longer present. The basilar opacities have not changed and are likely related to fibrosis. There is no fluid accumulation. There are extensive coronary calcifications. There has been a previous sternotomy. There has been some prominent mediastinal nodes which have not changed in appearance since the previous study. The regional skeleton is intact. Fibrotic changes in the lower lobe was the interpretation. Subsequent follow up chest x-rays continue to show basilar atelectasis. During the hospital stay he had low-grade fevers at best. Early on he had a bit of a temperature at 101.5. Vital signs were stable. He was treated symptomatically with antibiotics and his routine medicine. He was given vancomycin and levofloxacin during the stay along with his routine medications. For the most part, he was dyspneic. He was somewhat lethargic and not his typical self. We tried these antibiotics and thinking we headed off his possible pneumonitis and febrile illness. Then, we again saw no cultures that revealed anything. So, he was discharged with his thyroid and diabetic medicines and heart medicines and we are going to restart his regular medicines and follow him up with an outpatient x-ray. DISCHARGE SUMMARY: 1. Chronic obstructive pulmonary disease with pneumonitis. 2. History of ischemic heart disease. 3. Pacemaker. 4. Heart failure. He is scheduled to see us in the office. cc: Amol Ballesteros MD
== END 2019-06-17 13:55 | disposition home or self-care (01) | DRG 194 ==
LOC: P.ED 11:04 → P.MEDSURG 14:30
PROVIDERS: ADMIT Internal Medicine; ATTEND Internal Medicine